=== PATIENT | female | born 1995 | race Caucasian/White ===

== ENCOUNTER 2017-09-11 23:24 | Emergency (ER) | payer OTHER | END 2017-09-12 03:11 | disposition home or self-care (01) | LOC: FTE 23:24 | DX: L02.214 Cutaneous abscess of groin (principal) | CPT/HCPCS: 99284; Z7502 ==

== ENCOUNTER 2018-01-05 20:43 | Emergency (ER) | payer OTHER ==
[2018-01-05] MEDS: HYDROCODONE/APAP (10/325) TAB PO (22:12)
== END 2018-01-05 22:21 | disposition home or self-care (01) ==
LOC: FTE 20:43
DX: R51 Headache (principal)
CPT/HCPCS: 99284; Z7502

== ENCOUNTER 2018-01-24 20:49 | Emergency (ER) | payer OTHER | END 2018-01-24 21:46 | disposition home or self-care (01) | LOC: FTE 20:49 | DX: Z76.0 Encounter for issue of repeat prescription (principal); Z87.81 Personal history of (healed) traumatic fracture | CPT/HCPCS: 99281; Z7502 ==